=== PATIENT | female | born 1980 | race Caucasian/White ===

== ENCOUNTER 2017-06-18 22:55 | Emergency (ER) | payer BC ==
[~2017-06-18] VITALS: Ht 162.6 cm; Wt 59.0 kg
--- NOTE | 2017-06-18 23:15 | NUR ---
Dr. Jack at bedside for MSE.
[2017-06-18] MEDS ORDERED: LORAZEPAM 2 MG/1 ML VIAL IM ONE (23:45)
[2017-06-18] MEDS ORDERED: LORAZEPAM 2 MG/1 ML VIAL ONE (23:49)
[2017-06-18 23:55] LABS: CARBON DIOXIDE 24 mmol/L (21-32); CHLORIDE 101 mmol/L (98-107); GLUCOSE 103 mg/dL (74-106); POTASSIUM 3.4 mmol/L (3.5-5.1); UREA NITROGEN, BLOOD 10 mg/dL (7-18)
[2017-06-18 23:59] LABS: ETHANOL < 3 MG/DL (0-0)
[2017-06-19] LABS: BASOPHILS # (AUTO) 0.1 K/uL (0.0-8.0); BASOPHILS % (AUTO) 0.5 % (0.0-2.0); EOSINOPHILS # (AUTO) 0.1 K/uL (0.0-0.7); EOSINOPHILS % (AUTO) 0.6 % (0.0-7.0); HEMATOCRIT 37.2 % (31.2-41.9); LYMPHOCYTES # (AUTO) 2.3 K/uL (20.0-40.0); LYMPHOCYTES % (AUTO) 21.2 % (20.5-51.5); MEAN CORPUSCULAR HEMOGLOBIN 30.9 uug (24.7-32.8); MEAN CORPUSCULAR HGB CONC 35 g/dL (32.3-35.6); MEAN CORPUSCULAR VOLUME 88.7 fL (75.5-95.3); MONOCYTES # (AUTO) 0.6 K/uL (2.0-10.0); MONOCYTES % (AUTO) 5.7 % (0.0-11.0); PLATELET COUNT (AUTO) 350 K/uL (179-408); WHITE BLOOD COUNT (AUTO) 11.1 K/uL (3.8-11.8)
[2017-06-19 00:01] LABS: ACETAMINOPHEN < 2.0 ug/mL (10-30); ALANINE AMINOTRANSFERASE 15 U/L (14-59); ALKALINE PHOSPHATASE 58 U/L (50-136); ASPARTATE AMINOTRANSFERASE 12 U/L (15-37); BILIRUBIN,DIRECT 0.1 mg/dL (0.0-0.2); BILIRUBIN,TOTAL 0.6 mg/dL (0.2-1.0)
[2017-06-19] MEDS ORDERED: POTASSIUM CHLORIDE 20 MEQ TAB.PRT.SR PO ONE (00:30)
--- NOTE | 2017-06-19 00:30 | NUR ---
Assisted patient to bathroom, patient provided urine sample, sent to lab.
--- NOTE | 2017-06-19 01:00 | NUR ---
Patient sleeping in bed, no acute signs of distress.
[2017-06-19 01:16] LABS: *BILIRUBIN,URIN NEGATIVE (NEGATIVE); *BLOOD, URINE NEGATIVE (NEGATIVE); *CLARITY,URINE CLEAR (CLEAR); *COLOR,URINE YELLOW (YELLOW); *KETONES,URINE NEGATIVE (NEGATIVE); *PROTEIN,URINE NEGATIVE (NEGATIVE); *UROBILINOGEN,URINE 0.2 E.U./dl (NORMAL); LEUKOCYTE ESTERASE ,URINE NEGATIVE (NEGATIVE); NITRITE, URINE NEGATIVE (NEGATIVE); PH,URINE 6.5 (5.0-8.0); UGLUCOSE NEGATIVE (NEGATIVE)
[2017-06-19] MEDS ORDERED: POTASSIUM CHLORIDE 20 MEQ TAB.PRT.SR ONE (01:16)
[2017-06-19 01:36] LABS: *AMPHETAMINE, URINE POSITIVE (NEGATIVE); *BARBITURATE, URINE NEGATIVE (NEGATIVE); *CANNABINOID, URINE NEGATIVE (NEGATIVE); *COCCAINE, URINE NEGATIVE (NEGATIVE); *PHENCYCLIDINE SCREEN,URINE NEGATIVE (NEGATIVE)
[2017-06-19 01:44] LABS: BACTERIA,URINE MANY /HPF (NONE SEEN); RBC,URINE 0-3 /HPF (0-3); SQUAMOUS EPITHELIAL CELL,UR FEW /HPF (NONE SEEN); WBC,URINE 0-3 /HPF (0-3)
[2017-06-19 01:46] LABS: *URINE HCG, QUAL NEGATIVE (NEGATIVE)
[2017-06-19 01:50] LABS: *OPIATE, URINE NEGATIVE (NEGATIVE)
--- NOTE | 2017-06-19 01:59 | NUR ---
Cande Uribe LCSW arrived for psych evaluation of patient.
--- NOTE | 2017-06-19 03:00 | NUR ---
Patient sleeping, no acute signs of distress.
--- NOTE | 2017-06-19 04:07 | NUR ---
Patient sleeping, no acute signs of distress.
--- NOTE | 2017-06-19 05:00 | NUR ---
Patient sleeping in bed, no acute signs of distress.
--- NOTE | 2017-06-19 05:45 | NUR ---
After checking patient's vitals, patient stood up, reported she "needs to help with the salcido" started limping out of the room. Assisted patient back to her bed.
--- NOTE | 2017-06-19 06:49 | NUR ---
Patient sleeping in bed, no acute signs of distress.
--- NOTE | 2017-06-19 07:02 | NUR ---
Passed report to Jeet Dillon LVN.
--- NOTE | 2017-06-19 08:00 | NUR ---
Patient discharged to home in stable conditon. Written and verbal after care instructions given. Patient verbalizes understanding of instructions.
== END 2017-06-19 08:01 | disposition home or self-care (01) ==
LOC: ER 23:02
DX: F29 Unspecified psychosis not due to a substance or known physiological condition (principal); E87.6 Hypokalemia; M25.561 Pain in right knee; F15.10 Other stimulant abuse, uncomplicated
CPT/HCPCS: 36415; 80307; 84703; 85025; A4663; G0480; G0480-TC; J2060

== ENCOUNTER 2018-02-19 10:12 | Emergency (ER) | payer BC ==
[~2018-02-19] VITALS: Ht 162.6 cm; Wt 59.0 kg
[2018-02-19] MEDS ORDERED: LORAZEPAM 2 MG/1 ML VIAL ONE (11:14)
[2018-02-19] MEDS ORDERED: LORAZEPAM 2 MG/1 ML VIAL IM ONE (11:15)
--- NOTE | 2018-02-19 11:20 | NUR ---
ativan givem IM vial right gluteal muscle. 1:1 sitter here at the bedside.
[2018-02-19 11:26] LABS: BASOPHILS # (AUTO) 0.1 K/uL (0.0-8.0); BASOPHILS % (AUTO) 0.7 % (0.0-2.0); EOSINOPHILS # (AUTO) 0.1 K/uL (0.0-0.7); EOSINOPHILS % (AUTO) 0.5 % (0.0-7.0); HEMATOCRIT 40.3 % (31.2-41.9); HEMOGLOBIN 13.9 g/dL (10.9-14.3); LYMPHOCYTES # (AUTO) 2.3 K/uL (20.0-40.0); LYMPHOCYTES % (AUTO) 17.6 % (20.5-51.5); MEAN CORPUSCULAR HEMOGLOBIN 30.7 uug (24.7-32.8); MEAN CORPUSCULAR HGB CONC 35 g/dL (32.3-35.6); MEAN CORPUSCULAR VOLUME 89.1 fL (75.5-95.3); MONOCYTES # (AUTO) 0.9 K/uL (2.0-10.0); MONOCYTES % (AUTO) 7.1 % (0.0-11.0); NEUTROPHILS # (AUTO) 9.7 K/uL (1.8-8.9); NEUTROPHILS % (AUTO) 74.1 % (38.5-71.5); PLATELET COUNT (AUTO) 394 K/uL (179-408); RED BLOOD CELL COUNT(AUTO) 4.53 MIL/uL (3.63-4.92); WHITE BLOOD COUNT (AUTO) 13.1 K/uL (3.8-11.8)
[2018-02-19 11:41] LABS: ALANINE AMINOTRANSFERASE 17 U/L (14-59); ALKALINE PHOSPHATASE 75 U/L (50-136); ASPARTATE AMINOTRANSFERASE 12 U/L (15-37); BILIRUBIN,DIRECT 0.1 mg/dL (0.0-0.2); BILIRUBIN,TOTAL 0.5 mg/dL (0.2-1.0); CARBON DIOXIDE 22 mmol/L (21-32); CHLORIDE 100 mmol/L (98-107); CREATININE 1.2 mg/dL (0.6-1.3); GLUCOSE 88 mg/dL (74-106); POTASSIUM 4.2 mmol/L (3.5-5.1); TOTAL PROTEIN, SERUM 9.1 g/dL (6.4-8.2); UREA NITROGEN, BLOOD 14 mg/dL (7-18)
[2018-02-19 11:47] LABS: ACETAMINOPHEN < 2.0 ug/mL (10-30)
[2018-02-19 11:48] LABS: ETHANOL < 3 MG/DL (0-0)
[2018-02-19 11:49] LABS: THYROID STIMULATING HORMONE 2.537 mIU/mL (0.358-3.740)
--- NOTE | 2018-02-19 12:30 | NUR ---
patient voided, urine specimen sent to lab
[2018-02-19 12:43] LABS: *BILIRUBIN,URIN NEGATIVE (NEGATIVE); *BLOOD, URINE NEGATIVE (NEGATIVE); *COLOR,URINE YELLOW (YELLOW); *KETONES,URINE 1+ (NEGATIVE); *PROTEIN,URINE 1+ (NEGATIVE); *UROBILINOGEN,URINE 0.2 E.U./dl (NORMAL); LEUKOCYTE ESTERASE ,URINE NEGATIVE (NEGATIVE); NITRITE, URINE NEGATIVE (NEGATIVE); UGLUCOSE NEGATIVE (NEGATIVE)
[2018-02-19 12:54] LABS: *AMPHETAMINE, URINE POSITIVE (NEGATIVE); *BARBITURATE, URINE NEGATIVE (NEGATIVE); *CANNABINOID, URINE NEGATIVE (NEGATIVE); *COCCAINE, URINE NEGATIVE (NEGATIVE); *OPIATE, URINE NEGATIVE (NEGATIVE); *PHENCYCLIDINE SCREEN,URINE NEGATIVE (NEGATIVE)
[2018-02-19 12:59] LABS: *CLARITY,URINE HAZY (CLEAR)
[2018-02-19 13:01] LABS: BACTERIA,URINE MODERATE /HPF (NONE SEEN); RBC,URINE 0-3 /HPF (0-3); SQUAMOUS EPITHELIAL CELL,UR MODERATE /HPF (NONE SEEN); WBC,URINE 0-3 /HPF (0-3)
[2018-02-19] MEDS ORDERED: ACETAMINOPHEN ES 500 MG TABLET ONE (13:01)
[2018-02-19] MEDS ORDERED: ACETAMINOPHEN ES 500 MG TABLET PO ONE (13:03)
--- NOTE | 2018-02-19 13:04 | NUR ---
medicated for headache
--- NOTE | 2018-02-19 13:37 | NUR ---
crisis team her (rowan)
--- NOTE | 2018-02-19 13:40 | NUR ---
Pt moved to room 1a, sitter remains at bedside, pt eating lunch, NAD noted at this time.
[2018-02-19] MEDS ORDERED: diphenhydrAMINE 50 MG/1 ML VIAL ONE (14:00)
[2018-02-19] MEDS ORDERED: diphenhydrAMINE 50 MG/1 ML VIAL IM ONE (14:00)
[2018-02-19] MEDS ORDERED: OLANZAPINE 10 MG VIAL IM ONE ×2 (14:00)
--- NOTE | 2018-02-19 14:09 | NUR ---
zyprexia/benadryl given IM via right deltoid muscle.
--- NOTE | 2018-02-19 14:10 | NUR ---
exitcare instructions given / discharged
[2018-02-19 14:12] VITALS: BP 124/84
== END 2018-02-19 14:15 | disposition home or self-care (01) ==
LOC: ER 10:12
DX: F15.10 Other stimulant abuse, uncomplicated (principal); F29 Unspecified psychosis not due to a substance or known physiological condition; F17.210 Nicotine dependence, cigarettes, uncomplicated
CPT/HCPCS: 36415; 80048; 80076; 80307; 81001; 84443; 84702; 85025; 96372 ×3; 99283; G0480 ×2; G0481; J1200; J2060; A4663; A9150; J2358

== ENCOUNTER 2018-05-15 23:52 | Emergency (ER) | payer BC ==
[~2018-05-15] VITALS: Ht 165.1 cm; Wt 65.8 kg
--- NOTE | 2018-05-16 00:19 | NUR ---
Patient BIB [facility] with police for c/o hallucinations. Per EMS, [employer] requested transport due to placing the patient on a 5150 hold for DTS. Patient was not combative in the presence of [employer] or EMS. Patient presents A/O x4, ambulatory, calm and cooperative. To room 5A.
--- NOTE | 2018-05-16 00:38 | NUR ---
OVI performed MSE.
--- NOTE | 2018-05-16 00:40 | NUR ---
No 1:1 sitter available per NURSING TRANSLATOR/INTERPRETER. Security will increase rounding, and will be utilized to standy for patient if needed.
[2018-05-16 00:57] LABS: BASOPHILS % (AUTO) 0.4 % (0.0-2.0); EOSINOPHILS # (AUTO) 0.1 K/uL (0.0-0.7); EOSINOPHILS % (AUTO) 0.7 % (0.0-7.0); HEMATOCRIT 36.8 % (31.2-41.9); HEMOGLOBIN 12.5 g/dL (10.9-14.3); LYMPHOCYTES # (AUTO) 1.8 K/uL (20.0-40.0); LYMPHOCYTES % (AUTO) 17.1 % (20.5-51.5); MEAN CORPUSCULAR HEMOGLOBIN 29.7 uug (24.7-32.8); MEAN CORPUSCULAR HGB CONC 34 g/dL (32.3-35.6); MEAN CORPUSCULAR VOLUME 87.4 fL (75.5-95.3); MONOCYTES # (AUTO) 0.6 K/uL (2.0-10.0); MONOCYTES % (AUTO) 5.6 % (0.0-11.0); NEUTROPHILS # (AUTO) 8.2 K/uL (1.8-8.9); NEUTROPHILS % (AUTO) 76.2 % (38.5-71.5); PLATELET COUNT (AUTO) 374 K/uL (179-408); RED BLOOD CELL COUNT(AUTO) 4.21 MIL/uL (3.63-4.92); WHITE BLOOD COUNT (AUTO) 10.8 K/uL (3.8-11.8)
[2018-05-16 01:10] LABS: CARBON DIOXIDE 23 mmol/L (21-32); CHLORIDE 101 mmol/L (98-107); GLUCOSE 107 mg/dL (74-106); POTASSIUM 3.7 mmol/L (3.5-5.1); UREA NITROGEN, BLOOD 14 mg/dL (7-18)
[2018-05-16 01:17] LABS: ALANINE AMINOTRANSFERASE 17 U/L (14-59); ALKALINE PHOSPHATASE 67 U/L (50-136); ASPARTATE AMINOTRANSFERASE 17 U/L (15-37); BILIRUBIN,DIRECT 0.1 mg/dL (0.0-0.2); BILIRUBIN,TOTAL 0.3 mg/dL (0.2-1.0); TOTAL PROTEIN, SERUM 8.5 g/dL (6.4-8.2)
[2018-05-16 01:18] LABS: ACETAMINOPHEN < 2.0 ug/mL (10-30)
[2018-05-16 01:23] LABS: *BLOOD, URINE 2+ (NEGATIVE); *CLARITY,URINE SLIGHTLY CLOUDY (CLEAR); *COLOR,URINE YELLOW (YELLOW); *KETONES,URINE 2+ (NEGATIVE); *UROBILINOGEN,URINE 0.2 E.U./dl (NORMAL); LEUKOCYTE ESTERASE ,URINE NEGATIVE (NEGATIVE); NITRITE, URINE NEGATIVE (NEGATIVE); UGLUCOSE NEGATIVE (NEGATIVE)
[2018-05-16 01:25] LABS: *BILIRUBIN,URIN 1+ (NEGATIVE)
[2018-05-16 01:28] LABS: ETHANOL < 3 MG/DL (0-0)
[2018-05-16 01:29] LABS: *AMPHETAMINE, URINE POSITIVE (NEGATIVE); *BARBITURATE, URINE NEGATIVE (NEGATIVE); *CANNABINOID, URINE NEGATIVE (NEGATIVE); *COCCAINE, URINE NEGATIVE (NEGATIVE); *OPIATE, URINE NEGATIVE (NEGATIVE); *PHENCYCLIDINE SCREEN,URINE NEGATIVE (NEGATIVE)
[2018-05-16 01:44] LABS: BACTERIA,URINE FEW /HPF (NONE SEEN); MUCUS,URINE MANY /LPF (0-FEW); SQUAMOUS EPITHELIAL CELL,UR MODERATE /HPF (NONE SEEN); WBC,URINE 0-3 /HPF (0-3)
--- NOTE | 2018-05-16 01:50 | NUR ---
Call placed to [facility], for PET evaluation, ETA 60 min.
--- NOTE | 2018-05-16 02:15 | NUR ---
Patient requesting meal, which was provided.
--- NOTE | 2018-05-16 03:30 | NUR ---
Patient observed "singing" in restroom at very high volume, education performed and patient agrees to remain queiter.
--- NOTE | 2018-05-16 04:48 | NUR ---
Patient is resting comfortably in bed with eyes closed
--- NOTE | 2018-05-16 05:31 | NUR ---
Patient is resting comfortably in bed watching television.
--- NOTE | 2018-05-16 06:49 | NUR ---
Patient requesting to return home at this time but does not have transportation. Nursing Bulk Picker notified who provided patient with a taxi voucher.
== END 2018-05-16 06:59 | disposition home or self-care (01) ==
LOC: ER 23:55
DX: F15.10 Other stimulant abuse, uncomplicated (principal); F17.200 Nicotine dependence, unspecified, uncomplicated
CPT/HCPCS: 36415; 80048; 80076; 80307; 81001; 84702; 85025; 99283; G0480 ×2; G0481; A4663

== ENCOUNTER 2018-08-22 14:49 | Emergency (ER) | payer SELFPAY ==
[~2018-08-22] VITALS: Ht 170.2 cm; Wt 68.0 kg
--- NOTE | 2018-08-22 15:17 | NUR ---
Patient discharged to home in stable conditon. Written and verbal after care instructions given. Patient verbalizes understanding of instructions.PT WALKS IN STEADY GAIT. PT AXOX4, DENEIS ANY PAIN OR ANY OTHER COMPLAIN. PT WILLING TO GO HOME. PT ACCOMPANIED BY GIRL FRIEND
== END 2018-08-22 15:19 | disposition home or self-care (01) ==
LOC: ER 14:49
DX: F15.10 Other stimulant abuse, uncomplicated (principal); F17.200 Nicotine dependence, unspecified, uncomplicated
CPT/HCPCS: A4663

== ENCOUNTER 2018-08-28 07:12 | Emergency (ER) | payer SELFPAY ==
[~2018-08-28] VITALS: Ht 162.6 cm; Wt 59.0 kg
--- NOTE | 2018-08-28 07:25 | NUR ---
at bedside speaking with pt and her girlfriend.
--- NOTE | 2018-08-28 07:41 | NUR ---
Pt refused blood draw and urine specimen, notified.
--- NOTE | 2018-08-28 08:20 | NUR ---
Pt refused blood draw and urine specimen agian and walked out of ER.
--- NOTE | 2018-08-28 08:21 | NUR ---
Pt's girlfriend followed the pt out of the ER.
== END 2018-08-28 08:25 | disposition left against medical advice (07) ==
LOC: ER 07:12
DX: F15.10 Other stimulant abuse, uncomplicated (principal); F17.200 Nicotine dependence, unspecified, uncomplicated
CPT/HCPCS: A4663

== ENCOUNTER 2018-08-28 15:34 | Emergency (ER) | payer SELFPAY ==
[~2018-08-28] VITALS: Ht 162.6 cm; Wt 59.0 kg
--- NOTE | 2018-08-28 16:11 | NUR ---
PT IS IN ROOM #2A. DR JONES EVALUATED THE PT.
[2018-08-28 16:21] LABS: BASOPHILS # (AUTO) 0.1 K/uL (0.0-8.0); BASOPHILS % (AUTO) 0.7 % (0.0-2.0); EOSINOPHILS % (AUTO) 0.2 % (0.0-7.0); HEMATOCRIT 39.4 % (31.2-41.9); HEMOGLOBIN 13.2 g/dL (10.9-14.3); LYMPHOCYTES # (AUTO) 2.2 K/uL (20.0-40.0); LYMPHOCYTES % (AUTO) 16.7 % (20.5-51.5); MEAN CORPUSCULAR HEMOGLOBIN 29.2 uug (24.7-32.8); MEAN CORPUSCULAR HGB CONC 34 g/dL (32.3-35.6); MEAN CORPUSCULAR VOLUME 87.1 fL (75.5-95.3); MONOCYTES # (AUTO) 0.9 K/uL (2.0-10.0); MONOCYTES % (AUTO) 6.9 % (0.0-11.0); NEUTROPHILS # (AUTO) 10.2 K/uL (1.8-8.9); NEUTROPHILS % (AUTO) 75.5 % (38.5-71.5); PLATELET COUNT (AUTO) 369 K/uL (179-408); RED BLOOD CELL COUNT(AUTO) 4.52 MIL/uL (3.63-4.92); WHITE BLOOD COUNT (AUTO) 13.5 K/uL (3.8-11.8)
--- NOTE | 2018-08-28 16:24 | NUR ---
Pt moved to room 3, ambulated from room 2a with steady gait. Pt is calm and cooperative with care at this time. Pt denies any homicidal or suicidal ideation.
[2018-08-28 16:31] LABS: ETHANOL 5 MG/DL (0-0)
[2018-08-28 16:32] LABS: *BILIRUBIN,URIN 1+ (NEGATIVE); *BLOOD, URINE 2+ (NEGATIVE); *CLARITY,URINE SLIGHTLY CLOUDY (CLEAR); *COLOR,URINE YELLOW (YELLOW); *KETONES,URINE 2+ (NEGATIVE); *UROBILINOGEN,URINE 0.2 E.U./dl (NORMAL); LEUKOCYTE ESTERASE ,URINE TRACE (NEGATIVE); NITRITE, URINE NEGATIVE (NEGATIVE); PH,URINE 5.5 (5.0-8.0); UGLUCOSE NEGATIVE (NEGATIVE)
[2018-08-28 16:37] LABS: ACETAMINOPHEN < 2.0 ug/mL (10-30); ALANINE AMINOTRANSFERASE 12 U/L (14-59); ALKALINE PHOSPHATASE 71 U/L (50-136); ASPARTATE AMINOTRANSFERASE 15 U/L (15-37); BILIRUBIN,DIRECT 0.1 mg/dL (0.0-0.2); BILIRUBIN,TOTAL 0.6 mg/dL (0.2-1.0); CARBON DIOXIDE 27 mmol/L (21-32); CHLORIDE 101 mmol/L (98-107); CREATININE 1.5 mg/dL (0.6-1.3); GLUCOSE 83 mg/dL (74-106); POTASSIUM 4.1 mmol/L (3.5-5.1); TOTAL PROTEIN, SERUM 8.8 g/dL (6.4-8.2); UREA NITROGEN, BLOOD 18 mg/dL (7-18)
[2018-08-28 16:40] LABS: *AMPHETAMINE, URINE POSITIVE (NEGATIVE); *BARBITURATE, URINE NEGATIVE (NEGATIVE); *CANNABINOID, URINE NEGATIVE (NEGATIVE); *COCCAINE, URINE NEGATIVE (NEGATIVE); *OPIATE, URINE NEGATIVE (NEGATIVE); *PHENCYCLIDINE SCREEN,URINE NEGATIVE (NEGATIVE)
[2018-08-28 16:41] LABS: BACTERIA,URINE MODERATE /HPF (NONE SEEN); SQUAMOUS EPITHELIAL CELL,UR FEW /HPF (NONE SEEN); WBC,URINE 0-3 /HPF (0-3)
--- NOTE | 2018-08-28 16:42 | NUR ---
Pt refused Zyprexa po and walked out of the ER with steady gait. at bedside during incident.
[2018-08-28] MEDS ORDERED: OLANZAPINE 5 MG TABLET ONE ×2 (16:43→17:47)
[2018-08-28 16:45] LABS: THYROID STIMULATING HORMONE 1.337 mIU/mL (0.358-3.740)
[2018-08-28] MEDS ORDERED: OLANZAPINE 5 MG TABLET PO ONE ×2 (16:45→17:45)
--- NOTE | 2018-08-28 17:40 | NUR ---
Pt was brought back into ER by her girlfriend. Pt states she has changed her mind and wants to continue with the treatment. Pt ambulated to ER room 3, at bedside.
--- NOTE | 2018-08-28 17:57 | NUR ---
Patient discharged to home in stable conditon with her girlfriend. Written and verbal after care instructions given. Patient and her girlfriend verbalized understanding of instructions. Pt was given referrals for outpatient follow up as per ERMD order. Stressed follow up or return to ER for worsening s/s.
== END 2018-08-28 16:47 | disposition left against medical advice (07) ==
LOC: ER 15:34
DX: F15.959 Other stimulant use, unspecified with stimulant-induced psychotic disorder, unspecified (principal); F17.200 Nicotine dependence, unspecified, uncomplicated
CPT/HCPCS: 36415; 80048; 80076; 80307; 81000; 81001; 84443; 84702; 85025; 87086; 99283; G0480 ×2; G0481; A4663

== ENCOUNTER 2018-11-22 11:50 | Inpatient (IN) | payer MEDICAID ==
[~2018-11-22] VITALS: Ht 165.1 cm; Wt 68.0 kg
--- NOTE | 2018-11-22 12:00 | NUR ---
pt walked into er with girl friend and vitor clarke bizzarre psycotic behavioe. pt a chronic meth user, smoked some earlier today. per pt girl friend this is a typical behavior for her when she smokes meth
[2018-11-22] MEDS ORDERED: ONDANSETRON 4 MG/2 ML VIAL ONE (12:09)
[2018-11-22] MEDS ORDERED: OLANZAPINE 10 MG VIAL IM ONE ×2 (12:09→12:15)
[2018-11-22] MEDS ORDERED: ONDANSETRON 4 MG/2 ML VIAL IV ONE (12:15)
[2018-11-22] MEDS ORDERED: IV NORMAL SALINE 1000 ML BAG IV ONE (12:15)
[2018-11-22 12:23] LABS: BASOPHILS % (AUTO) 0.3 % (0.0-2.0); EOSINOPHILS % (AUTO) 0.2 % (0.0-7.0); HEMATOCRIT 38.3 % (31.2-41.9); HEMOGLOBIN 13.2 g/dL (10.9-14.3); LYMPHOCYTES # (AUTO) 1.7 K/uL (20.0-40.0); LYMPHOCYTES % (AUTO) 10.3 % (20.5-51.5); MEAN CORPUSCULAR HEMOGLOBIN 30.8 uug (24.7-32.8); MEAN CORPUSCULAR HGB CONC 35 g/dL (32.3-35.6); MEAN CORPUSCULAR VOLUME 89.3 fL (75.5-95.3); MONOCYTES % (AUTO) 6.2 % (0.0-11.0); NEUTROPHILS # (AUTO) 13.6 K/uL (1.8-8.9); PLATELET COUNT (AUTO) 402 K/uL (179-408); RED BLOOD CELL COUNT(AUTO) 4.29 MIL/uL (3.63-4.92); WHITE BLOOD COUNT (AUTO) 16.3 K/uL (3.8-11.8)
[2018-11-22] MEDS ORDERED: DEXTROSE 50% 50 ML DISP.SYRIN ONE (12:24)
[2018-11-22 12:33] LABS: ETHANOL < 3 MG/DL (0-0)
[2018-11-22 12:34] LABS: CARBON DIOXIDE 26 mmol/L (21-32); CHLORIDE 98 mmol/L (98-107); CREATININE 1.6 mg/dL (0.6-1.3); GLUCOSE 91 mg/dL (74-106); UREA NITROGEN, BLOOD 9 mg/dL (7-18)
[2018-11-22 12:40] LABS: ALANINE AMINOTRANSFERASE 9 U/L (14-59); ALKALINE PHOSPHATASE 80 U/L (50-136); ASPARTATE AMINOTRANSFERASE 13 U/L (15-37); BILIRUBIN,DIRECT 0.2 mg/dL (0.0-0.2); TOTAL PROTEIN, SERUM 8.4 g/dL (6.4-8.2)
[2018-11-22 12:42] LABS: ACETAMINOPHEN < 2.0 ug/mL (10-30)
[2018-11-22] MEDS ORDERED: LORAZEPAM 2 MG/1 ML VIAL ONE (12:44)
[2018-11-22] MEDS ORDERED: LORAZEPAM 2 MG/1 ML VIAL IV ONE (12:45)
[2018-11-22] MEDS ORDERED: DEXTROSE 25% 10 ML DISP.SYRIN IV ONE (12:45)
[2018-11-22 12:51] LABS: THYROID STIMULATING HORMONE 2.458 mIU/mL (0.358-3.740)
--- NOTE | 2018-11-22 12:58 | NUR ---
pt more coherent, asking for juice provided. pt no problem swallowing, deneis any nausea.
--- NOTE | 2018-11-22 15:14 | NUR ---
pt awake, walks in steady gait. requesting food. provided.
[2018-11-22] MEDS ORDERED: ZOLPIDEM 5 MG TABLET PO PRN (15:30)
[2018-11-22] MEDS ORDERED: ONDANSETRON 4 MG/2 ML VIAL IV PRN (15:30)
[2018-11-22] MEDS ORDERED: Z GUARD REMEDY PASTE 57 GM TUBE TOP PRN (15:30)
[2018-11-22] MEDS ORDERED: MAGNESIUM HYDROXIDE 30 ML LIQUID UDC PO PRN (15:30)
[2018-11-22] MEDS ORDERED: LORAZEPAM 2 MG/1 ML VIAL IV PRN (15:30)
[2018-11-22] MEDS ORDERED: HYDROCODONE/APAP 5-325MG TABLET PO PRN (15:30)
[2018-11-22] MEDS ORDERED: ACETAMINOPHEN 325 MG TABLET PO PRN (15:30)
[2018-11-22] MEDS ORDERED: IV NS 1000 ML 1,000 ML IV PRN (15:30)
--- NOTE | 2018-11-22 15:30 | NUR ---
trnasfered pt to floor in stable condition.
[2018-11-22 15:56] VITALS: BP 100/33
[2018-11-22] MEDS ORDERED: OLANZAPINE 5 MG TABLET PO SCH (17:00)
--- NOTE | 2018-11-22 18:30 | NUR ---
PT. REMAINS LETHARGIC SLEEPING MOST OF THE TIME. AROUSES EASILY TO VERBAL STIM. V/S STABLE
--- NOTE | 2018-11-22 21:42 | NUR ---
Patient awake at 2000H; IVF infusing; pt had turkey sandwich and juice; she ambulated on the hallway; awake and alert; orientedx4; offered to give ativan for rest and anxiety; pt's girlfriend requested NOT to let her go and give her something. pt is alert and would like to sign out; escalated matters to Charge nurse Del and Fur Mixer Operator Mariya; pt pulled out her IV herself; pt signed AMA form without being seen by MD; pt's girlfriend is aware; Dr Hui informed; pt is escorted by security to the lobby where pt stated that she will be picked up by her girlfriend.
[2018-11-23] MEDS ORDERED: PANTOPRAZOLE SODIUM 40 MG TABLET.DR PO SCH (07:00)
== END 2018-11-22 21:40 | disposition left against medical advice (07) | DRG 812 ==
LOC: ER 11:50 → TELE3 15:13
DX: T43.621A Poisoning by amphetamines, accidental (unintentional), initial encounter (principal); G92 Toxic encephalopathy; F15.151 Other stimulant abuse with stimulant-induced psychotic disorder with hallucinations; Y92.89 Other specified places as the place of occurrence of the external cause; E16.2 Hypoglycemia, unspecified; N28.9 Disorder of kidney and ureter, unspecified
CPT/HCPCS: 36415; 70030-TC; 71045; 84443; 85025; 93005; A4663; G0378; G0480; G0480-TC; J2060; J2358; J2405; J3490; J7030

== ENCOUNTER 2020-06-08 19:25 | Emergency (ER) | payer MEDICAID ==
[~2020-06-08] VITALS: Ht 167.6 cm; Wt 70.3 kg
[2020-06-08] MEDS ORDERED: IV NORMAL SALINE 1000 ML BAG IV ONE (19:45)
[2020-06-08 19:55] LABS: BASOPHILS # (AUTO) 0.1 K/uL (0.0-8.0); BASOPHILS % (AUTO) 0.5 % (0.0-2.0); EOSINOPHILS % (AUTO) 0.3 % (0.0-7.0); HEMATOCRIT 35.5 % (31.2-41.9); LYMPHOCYTES # (AUTO) 2.7 K/uL (20.0-40.0); LYMPHOCYTES % (AUTO) 18.6 % (20.5-51.5); MEAN CORPUSCULAR HEMOGLOBIN 29.9 uug (24.7-32.8); MEAN CORPUSCULAR HGB CONC 34 g/dL (32.3-35.6); MEAN CORPUSCULAR VOLUME 88.2 fL (75.5-95.3); MONOCYTES # (AUTO) 0.9 K/uL (2.0-10.0); NEUTROPHILS % (AUTO) 74.6 % (38.5-71.5); PLATELET COUNT (AUTO) 387 K/uL (179-408); RED BLOOD CELL COUNT(AUTO) 4.02 MIL/uL (3.63-4.92); WHITE BLOOD COUNT (AUTO) 14.8 K/uL (3.8-11.8)
--- NOTE | 2020-06-08 19:55 | NUR ---
Pt on 5150 - security called to bedside for continuous obs. Pt remains in bed at this time
[2020-06-08 20:03] LABS: ETHANOL < 3 MG/DL (0-0)
[2020-06-08 20:07] LABS: CARBON DIOXIDE 21 mmol/L (21-32); CHLORIDE 101 mmol/L (98-107); CREATININE 1.5 mg/dL (0.6-1.3); GLUCOSE 122 mg/dL (74-106); POTASSIUM 3.3 mmol/L (3.5-5.1); UREA NITROGEN, BLOOD 30 mg/dL (7-18)
[2020-06-08 20:13] LABS: ACETAMINOPHEN < 2.0 ug/mL (10-30); ALANINE AMINOTRANSFERASE 19 U/L (14-59); ALKALINE PHOSPHATASE 71 U/L (50-136); ASPARTATE AMINOTRANSFERASE 29 U/L (15-37); BILIRUBIN,DIRECT 0.2 mg/dL (0.0-0.2); BILIRUBIN,TOTAL 0.8 mg/dL (0.2-1.0); CREATINE KINASE, TOTAL 927 U/L (26-192); TOTAL PROTEIN, SERUM 8.3 g/dL (6.4-8.2)
[2020-06-08] MEDS ORDERED: IPRATROPIUM BROMIDE 0.5 MG/2.5 ML NEBU NEB ONE (20:15)
[2020-06-08] MEDS ORDERED: ALBUTEROL SULFATE 2.5 MG/3 ML NEBU NEB ONE (20:15)
--- NOTE | 2020-06-08 20:28 | NUR ---
PATIENT AGITATED STATING "WHY DO I NEED TO BE HERE." PULLED OUT HEP LOCK AND THREW IT ON THE FLOOR. DR KAN INTO EVAL PATIENT.
[2020-06-08] MEDS ORDERED: IV NS 1000 ML 1,000 ML IV ONE (20:30)
[2020-06-08] MEDS ORDERED: HALOPERIDOL LACTATE 5 MG/1 ML VIAL IM ONE (20:30)
[2020-06-08] MEDS ORDERED: LORAZEPAM 2 MG/1 ML VIAL IM ONE (20:30)
--- NOTE | 2020-06-08 20:34 | NUR ---
pt removed IV. Pt medicated per orders
[2020-06-08] MEDS ORDERED: LORAZEPAM 2 MG/1 ML VIAL ONE (20:35)
[2020-06-08] MEDS ORDERED: HALOPERIDOL LACTATE 5 MG/1 ML VIAL ONE (20:36)
--- NOTE | 2020-06-08 20:40 | NUR ---
Mother Chelsea [phone]
[2020-06-08 20:42] LABS: THYROID STIMULATING HORMONE 0.703 mIU/mL (0.358-3.740)
--- NOTE | 2020-06-08 21:05 | NUR ---
PT URINATED ON GURNEY & FLOOR. PT REFUSING THIS RN TO CHANGE LINEN.
--- NOTE | 2020-06-08 21:45 | NUR ---
Mckayla Carlisle from Pet Team here to eval Patient. Will Fax facesheet and summary report to [facility] . Phone number .
--- NOTE | 2020-06-08 21:53 | NUR ---
Faxed Facesheet and Summary report to [facility] to assist in finding U bed for patient.
--- NOTE | 2020-06-08 22:46 | NUR ---
[facility] BLACKMON [phone]
--- NOTE | 2020-06-09 00:19 | NUR ---
at bedside for reeval.
--- NOTE | 2020-06-09 00:34 | NUR ---
Pt resting at this time. NADN. ABCs intact. Resp even and unlabored. Per MD hold ivf at this time. Security remains at bedside. Pending psych eval in am.
--- NOTE | 2020-06-09 03:41 | NUR ---
pt resting at this time. NADN. ABCs intact. Resp even and unlabored. Will continue to monitor.
--- NOTE | 2020-06-09 07:00 | NUR ---
Per report: Pt on 5150H with [id number] form d/t GD (defecating on lawn) signed by NATALIA effective 06/08/20 @ 1192 Contact info nok: Marin (father) [phone]
--- NOTE | 2020-06-09 07:02 | NUR ---
ED handoff given
--- NOTE | 2020-06-09 07:02 | NUR ---
RECEIVED REPORT FROM ALL ROUND LOGGERSADDLE LINING STITCHER. Pt is asleep but easily rousable. still poor historian and unknown to time and situation. Pending UA sample. Pt still unable to provide sample. Pending Psyche re-evaluation. Pending disposition. nad vss ra monitored accordingly
--- NOTE | 2020-06-09 09:00 | NUR ---
Followed up with [facility] center: [phone] still no bed availability. states they will call back. Ashlie and Mckayla (crisis team) aware. Pt still asleep but easily rousable, and unable to provide urine. Still states she is unable to speak with re-logistics assistant at this time. kept comfortable, safe and monitored accordingly bed at lowest position srx2 up
--- NOTE | 2020-06-09 12:29 | NUR ---
[facility] called back and requested for copy of 5150H. Faxed [facility] 1801 form/ 5150 that was verified by Crisis team (rowan) Fax number: [phone] Pt able to tolerate 60% of lunch tray. Able to drink 1 cup of water. Pt asked when she would be discharged. Pt reoriented about situation. Pt went back to sleep. Monitored accordingly.
--- NOTE | 2020-06-09 14:25 | NUR ---
Report given to Tiffany RN: [phone] Pt is ok to admit to [facility] Bed [address] Sharpe
--- NOTE | 2020-06-09 14:33 | NUR ---
[facility] picked edge sewing machine operator ETA @ [phone] call back number [phone] to [facility]
--- NOTE | 2020-06-09 17:30 | NUR ---
Patient discharged to [facility] for placement, stable condition. Written and verbal after care instructions given. Accompanied by [facility] via gurney. Patient verbalizes understanding of instructions. Stressed follow up or return to ER for worsening s/s. all belongings and paperwork with pt.
[2020-06-09 17:33] VITALS: BP 154/77
== END 2020-06-09 17:38 ==
LOC: ER 19:28
DX: F29 Unspecified psychosis not due to a substance or known physiological condition (principal); F15.10 Other stimulant abuse, uncomplicated; Z82.49 Family history of ischemic heart disease and other diseases of the circulatory system; D72.829 Elevated white blood cell count, unspecified; N18.9 Chronic kidney disease, unspecified; R94.31 Abnormal electrocardiogram [ECG] [EKG]; Z20.822 Contact with and (suspected) exposure to COVID-19
CPT/HCPCS: 36415; 80048; 80076; 80299; 80320; 82550; 84443; 84484; 84702; 85025; 87426; 93005; 96360; 96372; 99285; J1630; J2060; 70030-TC; A4663; G0480; J7030

== ENCOUNTER 2021-02-09 16:17 | Emergency (ER) | payer MEDICAID ==
[~2021-02-09] VITALS: Ht 157.5 cm; Wt 63.0 kg
[2021-02-09] MEDS ORDERED: OLANZAPINE 10 MG VIAL IM ONE ×2 (17:00→17:47)
--- NOTE | 2021-02-09 17:47 | NUR ---
Although oriented, pt keeps saying non-sensical statements about the "forces of evil," etc. [employer] notifying their supervisor cutting and boning to come here. informed.
--- NOTE | 2021-02-09 18:15 | NUR ---
Pt finally allowed Blood draw. Pt refused EKG, pulled stickers off right away.
[2021-02-09 18:29] LABS: HEMATOCRIT 35.4 % (31.2-41.9); MEAN CORPUSCULAR HEMOGLOBIN 30.2 uug (24.7-32.8); MEAN CORPUSCULAR VOLUME 89.7 fL (75.5-95.3); PLATELET COUNT (AUTO) 394 K/uL (179-408)
[2021-02-09 18:38] LABS: CARBON DIOXIDE 25 mmol/L (21-32); CHLORIDE 100 mmol/L (98-107); GLUCOSE 86 mg/dL (74-106); POTASSIUM 3.8 mmol/L (3.5-5.1); UREA NITROGEN, BLOOD 14 mg/dL (7-18)
[2021-02-09 18:41] LABS: ETHANOL < 3 MG/DL (0-0)
[2021-02-09 18:53] LABS: ACETAMINOPHEN < 2.0 ug/mL (10-30); ALANINE AMINOTRANSFERASE 22 U/L (14-59); ALKALINE PHOSPHATASE 69 U/L (50-136); ASPARTATE AMINOTRANSFERASE 31 U/L (15-37); BILIRUBIN,DIRECT 0.1 mg/dL (0.0-0.2); BILIRUBIN,TOTAL 0.6 mg/dL (0.2-1.0); CREATINE KINASE, TOTAL 925 U/L (26-192); TOTAL PROTEIN, SERUM 8.2 g/dL (6.4-8.2)
[2021-02-09 18:56] LABS: THYROID STIMULATING HORMONE 0.636 mIU/mL (0.358-3.740)
--- NOTE | 2021-02-09 19:14 | NUR ---
Assumed care of patient from day shift nurse. [employer] on site. Awaiting medical clearance for booking.
[2021-02-09] MEDS ORDERED: POTASSIUM BICARBONATE/CIT AC 25 MEQ TABLET.EFF ONE (19:40)
[2021-02-09 21:46] LABS: *BILIRUBIN,URIN NEGATIVE (NEGATIVE); *CLARITY,URINE CLEAR (CLEAR); *COLOR,URINE LIGHT YELLOW (YELLOW); *KETONES,URINE 1+ (NEGATIVE); *UROBILINOGEN,URINE 0.2 E.U./dl (NORMAL); LEUKOCYTE ESTERASE ,URINE NEGATIVE (NEGATIVE); NITRITE, URINE NEGATIVE (NEGATIVE); UGLUCOSE NEGATIVE (NEGATIVE)
[2021-02-09 21:47] LABS: *BLOOD, URINE TRACE (NEGATIVE)
[2021-02-09 21:57] LABS: *AMPHETAMINE, URINE POSITIVE (NEGATIVE); *CANNABINOID, URINE NEGATIVE (NEGATIVE); *COCCAINE, URINE NEGATIVE (NEGATIVE); *OPIATE, URINE NEGATIVE (NEGATIVE); *PHENCYCLIDINE SCREEN,URINE NEGATIVE (NEGATIVE)
[2021-02-09 22:05] LABS: BACTERIA,URINE NONE SEEN /HPF (NONE SEEN); RBC,URINE 0-3 /HPF (0-3); SQUAMOUS EPITHELIAL CELL,UR FEW /HPF (NONE SEEN); WBC,URINE NONE SEEN /HPF (0-3)
--- NOTE | 2021-02-09 22:35 | NUR ---
Patient discharged to [employer]. Written and verbal after care instructions given. [employer] verbalizes understanding of instructions.
[2021-02-09 23:25] VITALS: BP 130/58
== END 2021-02-09 22:35 ==
LOC: ER 16:18
DX: F15.150 Other stimulant abuse with stimulant-induced psychotic disorder with delusions (principal); F15.129 Other stimulant abuse with intoxication, unspecified; F17.200 Nicotine dependence, unspecified, uncomplicated; D72.829 Elevated white blood cell count, unspecified; Z82.49 Family history of ischemic heart disease and other diseases of the circulatory system
CPT/HCPCS: 36415; 84443; 85025; 93005; A4663; C1758; G0480; J2358

== ENCOUNTER 2022-11-24 20:36 | Emergency (ER) | payer MEDICAID ==
[~2022-11-24] VITALS: Ht 165.1 cm; Wt 68.0 kg
[2022-11-24] MEDS ORDERED: HALOPERIDOL 0.5 MG TABLET ONE (22:58)
[2022-11-24] MEDS ORDERED: HALOPERIDOL 0.5 MG TABLET PO ONE (23:00)
[2022-11-24 23:10] LABS: BASOPHILS # (AUTO) 0.1 K/UL (0.0-0.2); BASOPHILS % (AUTO) 0.5 % (0.0-2.0); EOSINOPHILS # (AUTO) 0.1 K/uL (0.0-0.7); EOSINOPHILS % (AUTO) 0.6 % (0.0-7.0); HEMOGLOBIN 12.7 g/dL (10.9-14.3); LYMPHOCYTES # (AUTO) 2.7 K/uL (0.8-4.8); LYMPHOCYTES % (AUTO) 20.7 % (20.5-51.5); MEAN CORPUSCULAR HEMOGLOBIN 30.9 uug (24.7-32.8); MEAN CORPUSCULAR HGB CONC 34 g/dL (32.3-35.6); MEAN CORPUSCULAR VOLUME 90.3 fL (75.5-95.3); MONOCYTES # (AUTO) 1.1 K/uL (0.1-1.30); MONOCYTES % (AUTO) 8.7 % (0.0-11.0); NEUTROPHILS # (AUTO) 9.1 K/uL (1.8-8.9); NEUTROPHILS % (AUTO) 69.5 % (38.5-71.5); PLATELET COUNT (AUTO) 386 K/uL (179-408); RED CELL DISTRIBUTION WIDTH 12.9 % (12.3-17.7); WHITE BLOOD COUNT (AUTO) 13.1 K/uL (3.8-11.8)
[2022-11-24 23:17] LABS: DIFFERENTIAL COMMENT 1
[2022-11-24 23:19] LABS: *BILIRUBIN,URIN NEGATIVE (NEGATIVE); *CLARITY,URINE CLEAR (CLEAR); *COLOR,URINE YELLOW (YELLOW); *KETONES,URINE 1+ (NEGATIVE); *PROTEIN,URINE NEGATIVE (NEGATIVE); *UROBILINOGEN,URINE 0.2 E.U./dl (NORMAL); LEUKOCYTE ESTERASE ,URINE NEGATIVE (NEGATIVE); NITRITE, URINE NEGATIVE (NEGATIVE); UGLUCOSE NEGATIVE (NEGATIVE)
[2022-11-24 23:22] LABS: CALCIUM 9.8 mg/dL (8.5-10.1); CARBON DIOXIDE 26 mmol/L (21-32); CHLORIDE 96 mmol/L (98-107); CREATININE 1.1 mg/dL (0.6-1.3); GLUCOSE 98 mg/dL (74-106); POTASSIUM 3.9 mmol/L (3.5-5.1); SODIUM SERUM 130 mmol/L (136-145); UREA NITROGEN, BLOOD 12 mg/dL (7-18)
[2022-11-24 23:22] LABS: *BLOOD, URINE NEGATIVE (NEGATIVE)
[2022-11-24 23:23] LABS: BACTERIA,URINE NONE SEEN /HPF (NONE SEEN); SQUAMOUS EPITHELIAL CELL,UR FEW /HPF (NONE SEEN); WBC,URINE 0-3 /HPF (0-3)
[2022-11-24 23:28] LABS: ALANINE AMINOTRANSFERASE 18 U/L (14-59); ALKALINE PHOSPHATASE 68 U/L (50-136); ASPARTATE AMINOTRANSFERASE 18 U/L (15-37); BILIRUBIN,DIRECT 0.1 mg/dL (0.0-0.2); BILIRUBIN,TOTAL 0.7 mg/dL (0.2-1.0); TOTAL PROTEIN, SERUM 8.3 g/dL (6.4-8.2)
[2022-11-24 23:31] LABS: *AMPHETAMINE, URINE POSITIVE (NEGATIVE); *BARBITURATE, URINE NEGATIVE (NEGATIVE); *BENZODIAZEPINE, URINE NEGATIVE (NEGATIVE); *CANNABINOID, URINE NEGATIVE (NEGATIVE); *COCCAINE, URINE NEGATIVE (NEGATIVE); *OPIATE, URINE NEGATIVE (NEGATIVE); *PHENCYCLIDINE SCREEN,URINE NEGATIVE (NEGATIVE); FENTANYL, URINE NEGATIVE (NEGATIVE)
[2022-11-24 23:35] LABS: ETHANOL < 3 MG/DL (0-10)
[2022-11-25 07:22] VITALS: BP 102/55; TEMP 98.4; O2SAT 97
== END 2022-11-25 07:23 | disposition home or self-care (01) ==
LOC: ER 20:39
DX: F29 Unspecified psychosis not due to a substance or known physiological condition (principal); F15.10 Other stimulant abuse, uncomplicated; G47.00 Insomnia, unspecified; E87.1 Hypo-osmolality and hyponatremia; F22 Delusional disorders; F17.210 Nicotine dependence, cigarettes, uncomplicated; Z20.822 Contact with and (suspected) exposure to COVID-19
CPT/HCPCS: 36415; 85025; A4663; G0480

== ENCOUNTER 2023-04-19 20:23 | Emergency (ER) | payer MEDICAID ==
[2023-04-27] MEDS ORDERED: NITR100C6 PO (13:06)
== END 2023-04-19 21:34 | disposition left against medical advice (07) ==
LOC: EDBD → ER 20:31
DX: T50.901A Poisoning by unspecified drugs, medicaments and biological substances, accidental (unintentional), initial encounter (principal); Z53.21 Procedure and treatment not carried out due to patient leaving prior to being seen by health care provider; Y92.89 Other specified places as the place of occurrence of the external cause

== ENCOUNTER 2023-04-20 11:52 | Emergency (ER) | payer MEDICAID ==
[~2023-04-20] VITALS: Ht 165.1 cm; Wt 72.6 kg
[2023-04-20] MEDS ORDERED: diphenhydrAMINE 50 MG/1 ML VIAL ONE (12:08)
[2023-04-20] MEDS ORDERED: HALOPERIDOL LACTATE 5 MG/1 ML VIAL ONE (12:08)
[2023-04-20] MEDS ORDERED: LORAZEPAM 2 MG/1 ML VIAL ONE (12:09)
[2023-04-20] MEDS: diphenhydrAMINE 50 MG/1 ML VIAL IM ONE (12:14)
[2023-04-20] MEDS: HALOPERIDOL LACTATE 5 MG/1 ML VIAL IM ONE (12:14)
[2023-04-20] MEDS: LORAZEPAM 2 MG/1 ML VIAL IM ONE (12:14)
[2023-04-20 12:43] LABS: BASOPHILS % (AUTO) 0.2 % (0.0-2.0); EOSINOPHILS # (AUTO) 0.1 K/uL (0.0-0.7); EOSINOPHILS % (AUTO) 0.4 % (0.0-7.0); HEMATOCRIT 34.7 % (31.2-41.9); HEMOGLOBIN 11.9 g/dL (10.9-14.3); LYMPHOCYTES # (AUTO) 1.7 K/uL (0.8-4.8); LYMPHOCYTES % (AUTO) 12.2 % (20.5-51.5); MEAN CORPUSCULAR HEMOGLOBIN 30.9 uug (24.7-32.8); MEAN CORPUSCULAR HGB CONC 34 g/dL (32.3-35.6); MEAN CORPUSCULAR VOLUME 89.9 fL (75.5-95.3); MONOCYTES # (AUTO) 1.2 K/uL (0.1-1.30); MONOCYTES % (AUTO) 8.6 % (0.0-11.0); NEUTROPHILS # (AUTO) 10.9 K/uL (1.8-8.9); NEUTROPHILS % (AUTO) 78.6 % (38.5-71.5); PLATELET COUNT (AUTO) 360 K/uL (179-408); RED BLOOD CELL COUNT(AUTO) 3.86 MIL/uL (3.63-4.92); WHITE BLOOD COUNT (AUTO) 13.8 K/uL (3.8-11.8)
[2023-04-20 12:56] LABS: DIFFERENTIAL COMMENT 1
[2023-04-20 13:02] LABS: CALCIUM 9.1 mg/dL (8.5-10.1); CARBON DIOXIDE 23 mmol/L (21-32); CHLORIDE 102 mmol/L (98-107); CREATININE 1.1 mg/dL (0.6-1.3); GLUCOSE 90 mg/dL (74-106); POTASSIUM 4.2 mmol/L (3.5-5.1); SODIUM SERUM 135 mmol/L (136-145); UREA NITROGEN, BLOOD 18 mg/dL (7-18)
[2023-04-20 13:08] LABS: ALANINE AMINOTRANSFERASE 22 U/L (14-59); ALBUMIN 3.9 g/dL (3.4-5.0); ALKALINE PHOSPHATASE 64 U/L (50-136); ASPARTATE AMINOTRANSFERASE 23 U/L (15-37); BILIRUBIN,DIRECT 0.1 mg/dL (0.0-0.2); BILIRUBIN,TOTAL 0.6 mg/dL (0.2-1.0); TOTAL PROTEIN, SERUM 8.3 g/dL (6.4-8.2)
[2023-04-20 13:20] LABS: *BILIRUBIN,URIN NEGATIVE (NEGATIVE); *BLOOD, URINE 2+ (NEGATIVE); *CLARITY,URINE SLIGHTLY CLOUDY (CLEAR); *COLOR,URINE YELLOW (YELLOW); *KETONES,URINE NEGATIVE (NEGATIVE); *PROTEIN,URINE 1+ (NEGATIVE); *UROBILINOGEN,URINE 0.2 E.U./dl (NORMAL); LEUKOCYTE ESTERASE ,URINE TRACE (NEGATIVE); NITRITE, URINE NEGATIVE (NEGATIVE); PH,URINE 6.5 (5.0-8.0); UGLUCOSE NEGATIVE (NEGATIVE)
[2023-04-20 13:28] LABS: ACETAMINOPHEN < 2.0 ug/mL (10-30)
[2023-04-20 13:29] LABS: ETHANOL < 3 MG/DL (0-10)
[2023-04-20 13:47] LABS: RBC,URINE 0-3 /HPF (0-3)
[2023-04-20 13:48] LABS: BACTERIA,URINE MANY /HPF (NONE SEEN); SQUAMOUS EPITHELIAL CELL,UR FEW /HPF (NONE SEEN)
[2023-04-20 13:49] LABS: *AMPHETAMINE, URINE POSITIVE (NEGATIVE); *BARBITURATE, URINE NEGATIVE (NEGATIVE); *BENZODIAZEPINE, URINE NEGATIVE (NEGATIVE); *CANNABINOID, URINE NEGATIVE (NEGATIVE); *COCCAINE, URINE NEGATIVE (NEGATIVE); *OPIATE, URINE NEGATIVE (NEGATIVE); *PHENCYCLIDINE SCREEN,URINE NEGATIVE (NEGATIVE); FENTANYL, URINE NEGATIVE (NEGATIVE)
[2023-04-20] MEDS: CEphaleXIN 500 MG CAPSULE PO ONE (22:45)
[2023-04-20] MEDS ORDERED: CEphaleXIN 500 MG CAPSULE ONE (22:54)
[2023-04-21 14:43] VITALS: BP 110/63; O2SAT 99
== END 2023-04-21 14:44 | disposition home or self-care (01) ==
LOC: EDBD 11:54 → ER 11:54
DX: F29 Unspecified psychosis not due to a substance or known physiological condition (principal); F24 Shared psychotic disorder; F17.200 Nicotine dependence, unspecified, uncomplicated
CPT/HCPCS: 80076; 80048; 81001; 85025; 36415; 99291; 96372 ×2; 87086; 80299; 80320; 80307; J1200; J1630; J2060; A4606; A4663; G0480